=== PATIENT | female | born 1950 | race Caucasian/White ===

== ENCOUNTER 2020-05-13 10:03 | Emergency (ER) | payer MEDICARE, OTHER ==
[~2020-05-13] VITALS: Ht 160 cm; Wt 64.3 kg
--- NOTE | 2020-05-13 10:22 | PHYS DOC ---
Past History Additional Past Medical Histor: Thyroid CA Additional Past Surgical Histo: Thyroidectomy Smoking: Non-smoker General Adult HPI: HPI: Patient is a 69-year-old female who presents to the emergency department for evaluation. She states that she began experiencing lightheadedness about an hour prior to arrival, along with paresthesias in her hands bilaterally, along with perioral paresthesias. She denies any headache, vision changes, pleuritic chest pain, any other chest pain, or shortness of breath. She states that she has a history of a thyroidectomy, and some neck lymph node dissections due to medullary thyroid carcinoma, the surgery being performed at the end of December at [facility]. She states that soon afterwards she began feeling similar to the way she does now, because she was taking too much calcium and was hospitalized for hypercalcemia. She states that she has felt better since her calcium dose was adjusted since her surgery. She also takes thyroid replacement medication. There are no alleviating or exacerbating factors to her symptoms. Review of Systems: Review of Systems: Constitutional: Denies fever or chills Eyes: Denies change in visual acuity HENT: Denies nasal congestion or sore throat Respiratory: Denies cough or shortness of breath Cardiovascular: Denies chest pain or edema GI: Denies abdominal pain, nausea, vomiting, bloody stools or diarrhea : Denies dysuria Musculoskeletal: Denies back pain or joint pain Integument: Denies rash Neurologic: Denies headache, focal weakness or sensory changes, other than as noted in the HPI Endocrine: Denies polyuria or polydipsia Lymphatic: Denies swollen glands Psychiatric: Denies depression or anxiety Heart Score: Risk Factors: Risk Factors: DM, Current or recent (<one month) smoker, HTN, HLP, family history of CAD, obesity. Risk Scores: Score 0 - 3: 2.5% MACE over next 6 weeks - Discharge Home Score 4 - 6: 20.3% MACE over next 6 weeks - Admit for Clinical Observation Score 7 - 10: 72.7% MACE over next 6 weeks - Early Invasive Strategies Physical Exam: PE: PHYSICAL EXAM: CONSTITUTIONAL: Well developed, well nourished HEAD: normocephalic, atraumatic EENT: PERRL, EOMI. Conjunctivae normal color, sclerae non-icteric; moist mucous membranes. NECK: Supple, non-tender; no meningismus. LUNGS: Lungs CTA, breathing even and unlabored. Normal air movement. HEART: Regular rate and rhythm, no murmur CHEST: No deformity; non-tender ABDOMEN: The abdomen is soft, and non-tender, no masses or bruits. EXTREM: Normal ROM; no deformity, no calf tenderness. Normal pulses palpable in all extremities. There is no pedal edema. SKIN: No rash; no diaphoresis NEURO: Alert; normal speech and cognition; CN's grossly intact; strength grossly intact without focal deficit. BACK: No CVA TTP. PSYCHIATRIC: The patient exhibits a moderately anxious affect. Current Patient Data: Labs: Laboratory Tests Test 05/13/20 10:36 05/13/20 11:10 White Blood Count 6.0 x10^3/uL Red Blood Count 3.95 x10^6/uL Hemoglobin 12.9 g/dL Hematocrit 38.3 % Mean Corpuscular Volume 97 fL Mean Corpuscular Hemoglobin 33 pg Mean Corpuscular Hemoglobin Concent 34 g/dL Red Cell Distribution Width 14.0 % Platelet Count 331 x10^3/uL Neutrophils (%) (Auto) 59 % Lymphocytes (%) (Auto) 29 % Monocytes (%) (Auto) 7 % Eosinophils (%) (Auto) 4 % Basophils (%) (Auto) 1 % Neutrophils # (Auto) 3.5 x10^3uL Lymphocytes # (Auto) 1.8 x10^3/uL Monocytes # (Auto) 0.4 x10^3/uL Eosinophils # (Auto) 0.2 x10^3/uL Basophils # (Auto) 0.1 x10^3/uL Troponin I Quantitative < 0.017 ng/mL Sodium Level 137 mmol/L Potassium Level 3.7 mmol/L Chloride Level 102 mmol/L Carbon Dioxide Level 28 mmol/L Anion Gap 7 Blood Urea Nitrogen 21 mg/dL Creatinine 0.9 mg/dL Estimated GFR (Cockcroft-Gault) 61.9 BUN/Creatinine Ratio 23 Glucose Level 114 mg/dL Calcium Level 8.2 mg/dL Ionized Calcium 1.06 mmol/L Phosphorus Level 3.5 mg/dL Magnesium Level 2.1 mg/dL Total Bilirubin 0.3 mg/dL Aspartate Amino Transf (AST/SGOT) 16 U/L Alanine Aminotransferase (ALT/SGPT) 20 U/L Alkaline Phosphatase 45 U/L Total Protein 6.8 g/dL Albumin 3.4 g/dL Albumin/Globulin Ratio 1.0 Current Medications Medications (Trade) Dose Ordered Sig/Elif Route PRN Reason Start Time Stop Time Status Last Admin Dose Admin Lorazepam (Ativan Inj) 0.5 mg 1X ONCE IVP 05/13/20 10:30 05/13/20 11:13 DC Sodium Chloride 1,000 ml @ 1,000 mls/hr 1X ONCE IV 05/13/20 10:45 05/13/20 10:53 DC Lorazepam (Ativan Inj) 1 mg 1X ONCE IVP 05/13/20 10:45 05/13/20 10:53 DC Haloperidol Lactate (Haldol) 5 mg 1X ONCE IVP 05/13/20 10:45 05/13/20 10:53 DC EKG: EKG: Normal sinus rhythm at a rate of 74 bpm, normal axis, right bundle branch block with otherwise normal intervals. There are no acute ischemic ST/T changes. [] Radiology/Procedures: Radiology/Procedures: PROCEDURE: PORTABLE CHEST 1V PORTABLE CHEST 1V 05/13/2020 10:17 AM INDICATION: Near syncope COMPARISON: None available TECHNIQUE: Portable frontal view of the chest is provided. FINDINGS: The cardiomediastinal silhouette is within normal limits. Mild atrial enlargement. Lungs are clear. There are no significant pleural effusions. There is no pulmonary vascular congestion. No pneumothorax. No suspicious osseous abnormality. IMPRESSION: There is no acute cardiopulmonary process. No significant enlargement the cardiomediastinal silhouette although there is suggestion of mild atrial enlargement. [] Course & Med Decision Making: Course & Med Decision Making Pertinent Labs and Imaging studies reviewed. (See chart for details) []12:25 PM: Patient's condition remained stable. She is feeling significantly better. Although she does have some mild hypocalcemia, I suspect her symptoms might have been more related to panic attacks/anxiety. 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 Xin Disclaimer: Xin Disclaimer: This electronic medical record was generated, in whole or in part, using a voice recognition dictation system. Departure Departure: Impression: Primary Impression: Lightheadedness Additional Impressions: Paresthesias Hypocalcemia Disposition: HOME/RESIDENCE PRIOR TO ADM Condition: STABLE Patient Instructions: Anxiety and Panic Attacks, Dizziness, Hypocalcemia, Adult, Paresthesia Justification of Admission: Justification of Admission: Justification of Admission Dx: N/A BATOOL CROUCH MD May 13, 2020 10:21
[2020-05-13] MEDS ORDERED: IV NORMAL SALINE 1,000ML 1,000 ML IV ONE (10:45)
[2020-05-13] MEDS ORDERED: HALOPERIDOL LACT 5 MG/ML VIAL. IVP ONE (10:45)
[2020-05-13 10:57] LABS: BASO # 0.1 x10^3/uL (0.0-0.2); BASO % 1 % (0-3); EOS # 0.2 x10^3/uL (0.0-0.7); EOS % 4 % (0-3); HEMATOCRIT 38.3 % (36.0-47.0); HEMOGLOBIN 12.9 g/dL (12.0-15.5); LYMPH # 1.8 x10^3/uL (1.0-4.8); LYMPH % 29 % (24-48); MEAN CORPUSCULAR HEMOGLOBIN 33 pg (25-35); MEAN CORPUSCULAR HGB CONC 34 g/dL (31-37); MEAN CORPUSCULAR VOLUME 97 fL (79-100); MONO # 0.4 x10^3/uL (0.0-1.1); MONO % 7 % (0-9); NEUT # 3.5 x10^3uL (1.8-7.7); NEUT % 59 % (31-73); PLATELET COUNT 331 x10^3/uL (140-400); RED BLOOD COUNT 3.95 x10^6/uL (3.50-5.40)
--- NOTE | 2020-05-13 11:15 | RAD ---
PORTABLE CHEST 1V 05/13/2020 10:17 AM INDICATION: Near syncope COMPARISON: None available TECHNIQUE: Portable frontal view of the chest is provided. FINDINGS: The cardiomediastinal silhouette is within normal limits. Mild atrial enlargement. Lungs are clear. There are no significant pleural effusions. There is no pulmonary vascular congestion. No pneumothorax. No suspicious osseous abnormality. IMPRESSION: There is no acute cardiopulmonary process. No significant enlargement the cardiomediastinal silhouette although there is suggestion of mild atrial enlargement. Electronically signed by: Zulema Mukherjee MD (05/13/2020 11:12 AM) LAUREN
[2020-05-13 11:43] LABS: CALCIUM 8.2 mg/dL (8.5-10.1); CREATININE 0.9 mg/dL (0.6-1.0); GFR 61.9; POTASSIUM 3.7 mmol/L (3.5-5.1)
--- NOTE | 2020-05-13 11:49 | EKG ---
[address] [address] Test Date: 2020-05-13 Test Time: 10:07:17 Pat Name: PARUL WARREN Department: Room: Gender: F Program Host: : [id number] Requested By: BATOOL CROUCH Order Number: [id number] Reading MD: Measurements Intervals [place] Rate: 74 P: 14 WA: 130 QRS: 19 QRSD: 122 T: 26 QT: 408 QTc: 453 Interpretive Statements SINUS RHYTHM INCOMPLETE RIGHT BUNDLE BRANCH BLOCK OTHERWISE NORMAL ECG RI6.02 No previous ECG available for comparison
[2020-05-13 11:51] LABS: ALBUMIN 3.4 g/dL (3.4-5.0); MAGNESIUM 2.1 mg/dL (1.8-2.4); PHOSPHORUS 3.5 mg/dL (2.6-4.7); TOTAL BILIRUBIN 0.3 mg/dL (0.2-1.0); TOTAL PROTEIN 6.8 g/dL (6.4-8.2)
[2020-05-13 12:44] VITALS: BP 125/72
== END 2020-05-13 12:55 | disposition home or self-care (01) ==
LOC: ER 10:03
DX: R42 Dizziness and giddiness (principal); R20.0 Anesthesia of skin; E83.51 Hypocalcemia; Z85.850 Personal history of malignant neoplasm of thyroid; Z90.89 Acquired absence of other organs
CPT/HCPCS: 36415; 71045; 80053; 82330; 83735; 84100; 84484; 85025; 93005; 99285